=== PATIENT | female | born 1985 | race Two or more races ===

== ENCOUNTER → 2021-02-19 | Outpatient (CLI) | payer SELFPAY ==
[~2021-02-19] MED LIST: OXYC1TAB15 PO
== END ==
LOC: LAB 12:30
PROVIDERS: ATTEND Obstetrics & Gynecology
DX: Z01.812 Encounter for preprocedural laboratory examination (principal); Z20.822 Contact with and (suspected) exposure to COVID-19
CPT/HCPCS: U0003

== ENCOUNTER 2021-02-20 04:05 | Inpatient (IN) | payer SELFPAY ==
[~2021-02-20] VITALS: Ht 152.4 cm; Wt 72.0 kg
[2021-02-20 05:03] LABS: HEMATOCRIT 31.1 % (36.0-47.0); HEMOGLOBIN 10.8 g/dL (12.0-15.5); RED BLOOD COUNT 3.71 x10^6/uL (3.50-5.40); RED CELL DISTRIBUTION WIDTH 14.8 % (11.5-14.5); WHITE BLOOD COUNT 7.1 x10^3/uL (4.0-11.0)
[2021-02-20] MEDS ORDERED: IV RINGERS,LACTATED 1000ML 1,000 ML IV SCH (05:30)
[2021-02-20] MEDS ORDERED: IV NORMAL SALINE 1000ML BAG 1,000 ML IV SCH (05:30)
[2021-02-20] MEDS ORDERED: TERBUTALINE 1 MG/ML VIAL. SQ ONE (06:00)
[2021-02-20] MEDS ORDERED: CITRIC ACID/SODIUM CITRATE 30 ML SOLUTION. PO ONE (06:00)
[2021-02-20 06:22] VITALS: BP 134/73
[2021-02-20 06:26] LABS: BILIRUBIN,URINE NEGATIVE (NEG); CLARITY,URINE CLEAR; COLOR,URINE YELLOW; NITRITE,URINE NEGATIVE (NEG); PROTEIN,URINE NEGATIVE (NEG-TRACE); UROBILINOGEN,URINE 0.2 mg/dL (0.2 mg/dL)
[2021-02-20 06:45] LABS: BACTERIA,URINE 0 /HPF (0-FEW); RBC,URINE 0 /HPF (0-2); WBC,URINE OCC /HPF (0-4)
--- NOTE | 2021-02-20 07:13 | PDOC1 ---
FORM [employer]ER [employer]ER H&P Date of Admission: Date of Admission: Feb 20, 2021 at 04:05 History of Present Illness: EDC: 02/27/21 LMP: 05/23/20 35y @ 39.0 by L=19 presents for scheduled C/S. PMH: Denies PSH: C/S x 2 Meds: PNV, ASA All: NKDA OBHx: TSVD x 1, TC/S x 2, AB x 3 SH: no tob, no EtOH FH: noncontributory Medications: Meds: Current Medications Medications (Trade) Dose Ordered Sig/Marylin Route PRN Reason Start Time Stop Time Status Last Admin Dose Admin Ringer's Solution 1,000 ml @ 125 mls/hr Q8H IV 02/20/21 05:30 02/20/21 07:09 Terbutaline Sulfate (Brethine) 0.25 mg 1X ONCE SQ 02/20/21 06:00 02/20/21 06:01 DC 02/20/21 05:59 Allergies: Coded Allergies: No Known Allergies (Verified Allergy, Unknown, 02/20/21) Physical Exam: Vital Signs: Vital Signs Date Time Temp Pulse Resp B/P (MAP) Pulse Ox O2 Delivery O2 Flow Rate FiO2 02/20/21 06:22 97.6 84 20 134/73 (93) Room Air 97.6 PE: GENERAL: No apparent distress. Alert and oriented. HEENT: Head normocephalic, atraumatic. NECK: Supple LUNGS: Clear to auscultation. HEART: RRR, S1, S2 present, pulses intact ABDOMEN: Soft, positive bowel sounds. EXTREMITIES: No cyanosis or edema. NEUROLOGIC: Normal speech, normal tone PSYCHIATRIC: Normal affect, normal mood. SKIN: No ulceration. FHT: 130's +acels/no decels/mLTV Hale: 2 min SVE: 2/50/-3 Labs: Laboratory Tests Test 02/20/21 04:44 02/20/21 05:45 White Blood Count 7.1 x10^3/uL (4.0-11.0) Red Blood Count 3.71 x10^6/uL (3.50-5.40) Hemoglobin 10.8 g/dL (12.0-15.5) L Hematocrit 31.1 % (36.0-47.0) L Mean Corpuscular Volume 84 fL (79-100) Mean Corpuscular Hemoglobin 29 pg (25-35) Mean Corpuscular Hemoglobin Concent 35 g/dL (31-37) Red Cell Distribution Width 14.8 % (11.5-14.5) H Platelet Count 194 x10^3/uL (140-400) Urine Collection Type Unknown Urine Color Yellow Urine Clarity Clear Urine pH 7.0 (<5.0-8.0) Urine Specific [place] 1.015 (1.000-1.030) Urine Protein Negative mg/dL (NEG-TRACE) Urine Glucose (UA) Negative mg/dL (NEG) Urine Ketones (Stick) Negative mg/dL (NEG) Urine Blood Negative (NEG) Urine Nitrite Negative (NEG) Urine Bilirubin Negative (NEG) Urine Urobilinogen Dipstick 0.2 mg/dL (0.2 mg/dL) Urine Leukocyte Esterase Negative (NEG) Urine RBC 0 /HPF (0-2) Urine WBC Occ /HPF (0-4) Urine Squamous Epithelial Cells Mod /LPF Urine Bacteria 0 /HPF (0-FEW) Laboratory Tests 02/20/21 04:44 Laboratory Tests 02/20/21 04:44 Assessment & Plan: A/P 35y @ 39.0 by L=19 1.) Prev C/S x 2 - scheduled for RLTCS/BTL 2.) AMA 3.) DPS - KENDALL consent signed 01/13/21 4.) Letha NI 5.) Fetus cat I FHT 6.) GBS neg 7.) TDAP EDUARDO VALENTIN MD Feb 20, 2021 07:13
[2021-02-20] MEDS ORDERED: MORPHINE PF 10 MG/10 ML AMPUL. ONE (07:16)
[2021-02-20] MEDS ORDERED: ePHEDrine PF IN SALINE 50 MG/10 ML SYRINGE. IV ONE (07:16)
[2021-02-20] MEDS ORDERED: PHENYLEPHRINE in 0.9% NACL PF 1 MG/10 ML SYRINGE. IV ONE ×2 (07:16→08:57)
[2021-02-20] MEDS ORDERED: OXYTOCIN 10 UNIT/ML VIAL. ONE (07:16)
[2021-02-20] MEDS ORDERED: fentaNYL PF VIAL 100 MCG/2 ML VIAL ONE (07:17)
[2021-02-20] MEDS ORDERED: ONDANSETRON PF 4 MG/2 ML VIAL. ONE (08:20)
[2021-02-20] MEDS ORDERED: diphenhydrAMINE 50 MG/ML VIAL ONE (09:08)
[2021-02-20] MEDS ORDERED: oxyCODONE/APAP 5/325 1 TAB TABLET PO PRN (09:45)
[2021-02-20] MEDS ORDERED: 0.9 % SODIUM CHLORIDE 10 ML DISP.SYRIN. IV PRN (09:45)
[2021-02-20] MEDS ORDERED: diphenhydrAMINE ORAL ELIXIR 12.5 MG/5 ML ML PO PRN (09:45)
[2021-02-20] MEDS ORDERED: TDaP (Adacel) per PROTOCOL. MC PRN (09:45)
[2021-02-20] MEDS ORDERED: OXYTOCIN 30 UNIT/500 ML PREMIX 500 ML IV PRN (09:45)
[2021-02-20] MEDS ORDERED: ACETAMINOPHEN 325 MG TABLET. PO PRN (09:45)
[2021-02-20] MEDS ORDERED: MMR per PROTOCOL. MC PRN (09:45)
[2021-02-20] MEDS ORDERED: BENZOCAINE 20% TOPICAL AEROSOL SPRAY 57GM CAN. TP PRN (09:45)
[2021-02-20] MEDS: KETOROLAC 30 MG/ML VIAL. IVP PRN ×2 (10:41→17:59)
--- NOTE | 2021-02-20 10:46 | PDOC4 ---
OPERATIVE NOTE: PreOp Dx: 1.) IUP @ 39.0 by L=19, 2.) Latent labor, 3.) Prev C/S x 2, 4.) AMA, 5.) DPS, 6.) Letha NI, 7.) GBS neg PostOp Dx: same Procedure: RLTCS/BTL Surgeon: Harry Wilson Anesthesia: Spinal EBL: 700 cc Fluids: 1600 cc UOP: 150 cc Complications: None Findings: viable female delivered at 0827. Wt 3620 g. APGARS 8/9. Nml appearing uterus, tubes and ovaries Path: Cord blood, bilateral tubal segments, placenta EDUARDO WILSON MD Feb 20, 2021 10:46
--- NOTE | 2021-02-20 11:09 | OP ---
DATE OF SURGERY: 02/20/2021 PREOPERATIVE DIAGNOSES: 1. Intrauterine at 39 weeks and 0 days by last menstrual period equal to 19-week ultrasound. 2. Latent labor. 3. Previous section x 2. 4. Advanced maternal age. 5. Desires permanent sterilization. 6. Varicella nonimmune. 7. Group B Streptococcus negative. POSTOPERATIVE DIAGNOSES: 1. Intrauterine at 39 weeks and 0 days by last menstrual period equal to 19-week ultrasound. 2. Latent labor. 3. Previous section x 2. 4. Advanced maternal age. 5. Desires permanent sterilization. 6. Varicella nonimmune. 7. Group B Streptococcus negative. PROCEDURE: Repeat low transverse with bilateral tubal ligation. SURGEON: Eliot Valerio MD ANESTHESIA: Spinal. ESTIMATED BLOOD LOSS: 700 mL FLUIDS: 1600 mL URINE OUTPUT: 150 mL COMPLICATIONS: None. FINDINGS: Viable female infant delivered at 0827, weighing 3620 grams with Apgars of 8 and 9. Normal appearing uterus, tubes, and ovaries. PATHOLOGY: Cord blood, bilateral tubal segments and placenta. DESCRIPTION OF PROCEDURE: The patient was taken to the operating room where spinal anesthesia was placed without difficulty. The patient was prepped and draped in normal sterile fashion and Pfannenstiel skin incision was made through her previous incision, carried down to the underlying layer of fascia. The fascia was then nicked in the midline. The fascial incision was then extended laterally with Rodriguez scissors. The superior aspect of fascial incision was then grasped with Pipo clamps, elevated and the underlying rectus muscle was dissected off of the scalpel. While the fascia, the peritoneal cavity was entered. At that point, attention was then turned to the inferior aspect of fascial incision, which again was grasped with Pipo clamps, elevated and the underlying rectus muscle was dissected off with Rodriguez scissors. The peritoneal opening that was created while the superior fascia was then extended with traction and countertraction with good visualization of the bladder. At that point, the Rashad ring was then placed in the abdomen to better visualize the lower uterine segment. Metzenbaum scissors were used to create a bladder flap. At that point, the lower uterine segment was then incised in transverse fashion with the scalpel. The hysterotomy was extended with traction and countertraction. That was then flexed and brought to the hysterotomy and the rest of was delivered atraumatically. The cord was double clamped and cut and was handed over to the waiting wireless sales representative. Placenta was then removed manually. Uterus was then cleared of all clots and debris. The uterine incision was then repaired with #1 chromic in a running locked fashion. The second layer of the same suture was used to imbricate. Good hemostasis was noted. At that point, the uterus was exteriorized to allow for the tubal to be performed. Left tube was then identified and followed out to the fimbria. The tube was then grasped with [place] clamps. An opening was created in the avascular portion of the mesosalpinx. Two free ties of 0 gut were then used to ligate the tube. This 2 cm segment of tube was then excised and sent to pathology. The edges were made hemostatic with the Bovie. Attention was then turned to the right tube was followed out to the fimbria. The Lois clamp was then used to grasp the tube with the Bovie, an opening created in the avascular space of the mesosalpinx just below the tube. Two free ties of plain gut were then used to ligate the tube. This 2 cm segment of the tube was then sent to pathology. The mesosalpinx below where the tube was removed was bleeding. A 3-0 chromic was then used in a running locked manner to achieve hemostasis along the mesosalpinx. Good hemostasis was noted. At that point, the uterus was returned to the abdomen. The gutters were copiously irrigated and cleared of all clots and debris. Reexamination of the tubal sites were irrigated revealed good hemostasis. The Rashad ring was then removed. The uterus was then returned to the abdomen. Examination of the uterine incision revealed some bleeding just right of midline. A 2-0 chromic was then placed in a running locked fashion to achieve hemostasis. Once this had been performed, the gutters were copiously irrigated and cleared of all clots and debris. Good hemostasis was noted. At that point, the Rashad ring was then removed. The peritoneum was then closed with 2-0 Vicryl in a running fashion. The muscle was reapproximated with 2-0 Vicryl in a running fashion. The fascia was then closed with 0 Vicryl in a running fashion. The skin was closed with 3-0 Monocryl in a subcuticular manner. The patient tolerated the procedure well. Sponges, laps and needles were correct x 3. Two grams of Ancef were given prior to the procedure. The patient tolerated the procedure well and was taken to recovery room in stable condition. BEV DR: Bhargav TID: [id number] MTDD
[2021-02-20 12:28] VITALS: BP 95/60
[2021-02-20] MEDS: IV RINGERS,LACTATED 1000ML 1,000 ML IV SCH ×2 (13:08→22:15)
[2021-02-20 13:31] VITALS: BP 95/51
[2021-02-20 16:00] VITALS: BP 94/48
[2021-02-20 20:00] VITALS: BP 98/56
[2021-02-21] MEDS: KETOROLAC 30 MG/ML VIAL. IVP PRN (00:55)
[2021-02-21 01:00] VITALS: BP 85/47
[2021-02-21 05:45] VITALS: BP 99/54
[2021-02-21 06:11] LABS: HEMATOCRIT 30.3 % (36.0-47.0); HEMOGLOBIN 10.1 g/dL (12.0-15.5); RED BLOOD COUNT 3.54 x10^6/uL (3.50-5.40); RED CELL DISTRIBUTION WIDTH 14.7 % (11.5-14.5); WHITE BLOOD COUNT 9.1 x10^3/uL (4.0-11.0)
[2021-02-21] MEDS: IV RINGERS,LACTATED 1000ML 1,000 ML IV SCH ×2 (07:28→18:15)
[2021-02-21 07:47] VITALS: BP 100/50
[2021-02-21] MEDS: FERROUS SULFATE 325 MG TABLET. PO SCH ×3 (08:00→17:00)
[2021-02-21] MEDS: PRENATAL MULTIVITAMIN TABLET. PO SCH (08:22)
[2021-02-21] MEDS: IBUPROFEN 400 MG TABLET. PO PRN ×2 (08:23→17:22)
[2021-02-21] MEDS: oxyCODONE/APAP 5/325 1 TAB TABLET PO PRN ×3 (08:24→22:13)
[2021-02-21] MEDS: DOCUSATE SODIUM 100 MG CAPSULE. PO PRN (08:25)
[2021-02-21] MEDS ORDERED: MULTIVITAMIN with MINERAL TABLET. PO SCH (09:00)
--- NOTE | 2021-02-21 10:45 | PDOC ---
ROADABILITY MACHINE OPERATOR PROGRESS NOTE Date of Service: DATE: 02/21/21 TIME: 10:45 Subjective: Pt with good pain control. Char PO. Voiding. Minimal lochia. Objective: Vital Signs: Vital Signs Date Time Temp Pulse Resp B/P (MAP) Pulse Ox O2 Delivery O2 Flow Rate FiO2 02/20/21 12:28 98.7 64 16 95/60 (72) 98 Room Air 98.7 Vital Signs Date Time Temp Pulse Resp B/P (MAP) Pulse Ox O2 Delivery O2 Flow Rate FiO2 02/21/21 08:24 16 Room Air 02/21/21 07:47 98.2 72 100/50 (67) 99 98.2 Labs: Laboratory Tests Test 02/21/21 05:50 White Blood Count 9.1 x10^3/uL (4.0-11.0) Red Blood Count 3.54 x10^6/uL (3.50-5.40) Hemoglobin 10.1 g/dL (12.0-15.5) L Hematocrit 30.3 % (36.0-47.0) L Mean Corpuscular Volume 86 fL (79-100) Mean Corpuscular Hemoglobin 29 pg (25-35) Mean Corpuscular Hemoglobin Concent 33 g/dL (31-37) Red Cell Distribution Width 14.7 % (11.5-14.5) H Platelet Count 171 x10^3/uL (140-400) Laboratory Tests 02/21/21 05:50 Laboratory Tests 02/21/21 05:50 Physical Exam: GENERAL: No apparent distress. Alert and oriented. HEENT: Head normocephalic, atraumatic. NECK: Supple LUNGS: Clear to auscultation. HEART: RRR, S1, S2 present, pulses intact ABDOMEN: Soft, positive bowel sounds. EXTREMITIES: No cyanosis or edema. NEUROLOGIC: Normal speech, normal tone PSYCHIATRIC: Normal affect, normal mood. SKIN: No ulceration. FFNT below umb No C/C/E Inc: C/D/I Assessment & Plan: A/P 35y POD #1 s/p RLTCS/BTL 1.) PO doing well 2.) AMA 3.) Hgb 10.8 -> 10.1 4.) TDAP PP 5.) Cont PP care EDUARDO WILSON MD Feb 21, 2021 10:45
[2021-02-21] MEDS ORDERED: DIPH,PERTUSS(ACELL),TET VAC/PF 0.5 ML SYRINGE. VAX IM ONE (12:15)
[2021-02-21 14:11] VITALS: BP 100/59
[2021-02-21 20:00] VITALS: BP 103/62
[2021-02-21 22:00] VITALS: BP_SYST 103; BP_SYST 92; BP_DIAS 60; BP_DIAS 62
[2021-02-22 05:00] VITALS: BP 106/65
[2021-02-22] MEDS: IBUPROFEN 400 MG TABLET. PO PRN (05:37)
[2021-02-22 08:10] VITALS: BP 97/66
[2021-02-22] MEDS: DOCUSATE SODIUM 100 MG CAPSULE. PO PRN (08:38)
[2021-02-22] MEDS: PRENATAL MULTIVITAMIN TABLET. PO SCH (08:38)
[2021-02-22] MEDS: FERROUS SULFATE 325 MG TABLET. PO SCH (08:38)
[2021-02-22] MEDS: oxyCODONE/APAP 5/325 1 TAB TABLET PO PRN (11:35)
--- NOTE | 2021-02-22 11:39 | PDOC ---
BARN OPERATOR PROGRESS NOTE Date of Service: DATE: 02/22/21 TIME: 11:38 Subjective: Pt with good pain control. Char PO. Voiding. Minimal lochia. Objective: Vital Signs: Vital Signs Date Time Temp Pulse Resp B/P (MAP) Pulse Ox O2 Delivery O2 Flow Rate FiO2 02/21/21 07:35 Room Air 02/21/21 07:47 98.2 72 16 100/50 (67) 99 98.2 Vital Signs Date Time Temp Pulse Resp B/P (MAP) Pulse Ox O2 Delivery O2 Flow Rate FiO2 02/22/21 11:35 16 Room Air 02/22/21 08:10 98.7 64 97/66 (76) 97 98.7 Physical Exam: GENERAL: No apparent distress. Alert and oriented. HEENT: Head normocephalic, atraumatic. NECK: Supple LUNGS: Clear to auscultation. HEART: RRR, S1, S2 present, pulses intact ABDOMEN: Soft, positive bowel sounds. EXTREMITIES: No cyanosis or edema. NEUROLOGIC: Normal speech, normal tone PSYCHIATRIC: Normal affect, normal mood. SKIN: No ulceration. Inc: C/D/I FFNT below umb No C/C/E Assessment & Plan: A/P 35y POD #2 s/p RLTCS/BTL 1.) PO doing well 2.) AMA 3.) Hgb 10.8 -> 10.1 4.) TDAP PP 5.) D/c home EDUARDO WILSON MD Feb 22, 2021 11:39
[2021-02-22] MEDS ORDERED: OXYC1TAB15 PO (11:42)
[2021-02-22 12:10] VITALS: BP 117/77
--- NOTE | 2021-02-22 12:26 | DS ---
DATE OF DISCHARGE: 02/22/2021 ADMISSION DIAGNOSES: 1. Intrauterine at 39 weeks and 0 days by LMP equal to a 19-week ultrasound. 2. Previous x 2. 3. Advanced maternal age. 4. Desires permanent sterilization. 5. GBS negative. DISCHARGE DIAGNOSES: 1. Intrauterine at 39 weeks and 0 days by LMP equal to a 19-week ultrasound. 2. Previous x 2. 3. Advanced maternal age. 4. Desires permanent sterilization. 5. GBS negative. PROCEDURE: Repeat low transverse with bilateral tubal ligation. BRIEF HOSPITAL COURSE: The patient is a 35-year-old 7, para 3-0-3-3 at 39 weeks and 0 days by LMP equal to a 19-week ultrasound, who presented for scheduled . The patient's had been relatively uncomplicated. The patient had been put on aspirin for AMA status. On the day of her the patient came in hour prior to her scheduled time with regular contractions. The patient was found to be 2 cm. The patient was given a dose of terbutaline with the plan to perform her at the previously scheduled time. The patient underwent said procedure. See operative note for full detail. By day #2 the patient was meeting all discharge criteria and desired discharge home. Of note, the patient was given Tdap during the hospitalization. Also of note, her hemoglobin was found to be 10.8 on admission and 10.1 after delivery. DISCHARGE INSTRUCTIONS: The patient was told not to lift anything greater than 20 pounds, have pelvic rest for 6 weeks, not to drive on narcotics. CALL IF: The patient is to call if she had fevers, chills, nausea, vomiting, abdominal pain, worsening bleeding or any additional questions or concerns. FOLLOWUP APPOINTMENT: The patient was to follow up on 02/26/2021 at 1:00 p.m. for an incision check. DISCHARGE MEDICATIONS: The patient was given a prescription for Percocet 5, fifteen pills; Motrin 800 mg 30 pills and Colace [address]: Bhargav TID: [id number]
--- NOTE | 2021-02-22 13:00 | NUR ---
dismissed to home with baby in car seat to in car. Home care instructions given and copy given. reminded to get rx at [facility] on [address] with full name
== END 2021-02-22 13:00 | disposition home or self-care (01) | DRG 785 ==
LOC: 3 SO LND 04:05 → UNDOADMOB 04:05 → 3 SO LND 04:26 → EDSTATUS 08:00 → 3 SO LND 12:28 → UNDODISOB 02-22 13:00
PROVIDERS: ADMIT Obstetrics & Gynecology; ATTEND Obstetrics & Gynecology
PROC: 10D00Z1 Extraction of Products of Conception, Low, Open Approach (ICD-10-PCS; principal; 2021-02-20)
PROC: 0UT70ZZ Resection of Bilateral Fallopian Tubes, Open Approach (ICD-10-PCS; 2021-02-20)
DX: O34.211 Maternal care for low transverse scar from previous cesarean delivery (principal); Z37.0 Single live birth; Z30.2 Encounter for sterilization; Z3A.39 39 weeks gestation of pregnancy
CPT/HCPCS: 36415; 81001; 85027; 86592; 86850; 86900; 86901; 90471; 90715; C1755; J1200; J1885; J2274; J2370; J2405; J2590; J3010; J3105; J7120; G0378